=== PATIENT | female | born 1990 | race Caucasian/White ===

== ENCOUNTER 2021-12-17 23:57 | Emergency (ER) | payer OTHER ==
[2021-12-18 00:25] VITALS: BP 99/62; PULSE 75; TEMP 98.3; BMI 20.7
== END 2021-12-18 02:45 | disposition home or self-care (01) ==
LOC: JER 23:57
DX: L60.0 Ingrowing nail (principal)
CPT/HCPCS: 99281-25

== ENCOUNTER 2022-04-08 16:14 | Emergency (ER) | payer OTHER ==
[2022-04-08 17:24] VITALS: BP 95/56; PULSE 88; RESP 20; TEMP 99.1; BMI 23.3
[2022-04-08] MEDS ORDERED: DEXAMETHASONE SOD PHOSPHATE 10 MG/1 ML VIAL IVPUSH ONE (17:59)
[2022-04-08 18:42] LABS: THROAT:GRP A STREP NOT DETECTED (NOTDETECTED)
== END 2022-04-08 18:45 | disposition home or self-care (01) ==
LOC: JER 16:14
PROC: 3E0333Z Introduction of Anti-inflammatory into Peripheral Vein, Percutaneous Approach (ICD-10-PCS; principal; 2022-04-08)
DX: R05.1 Acute cough (principal); J02.9 Acute pharyngitis, unspecified; J09.X2 Influenza due to identified novel influenza A virus with other respiratory manifestations
CPT/HCPCS: 0241U-QW; 87651; 99284-25; J1100

== ENCOUNTER 2023-06-20 17:17 | Emergency (ER) | payer OTHER ==
[2023-06-20 17:50] VITALS: BP 100/64; PULSE 78; RESP 16; TEMP 98.1; BMI 19.1
[2023-06-20 21:00] LABS: HEMATOCRIT 37.7 % (32.4-45.2); HEMOGLOBIN 12.3 GM/dL (10.7-15.3); MCH 27.1 pg (25.7-33.7); MCHC 32.6 g/dl (32.0-36.0); MEAN CELL VOLUME 83.2 fl (80-96); MEAN PLT VOLUME 6.9 fl (7.5-11.1); PLATELET COUNT 271 10^3/uL (134-434); RBC 4.52 M/mm3 (3.60-5.2); RDW 14.2 % (11.6-15.6); WHITE BLOOD COUNT 8.5 K/mm3 (4.0-10.0)
[2023-06-20 21:01] LABS: EPI CELLS >36 /uL (0-25.1); HYALINE CASTS 0 /uL (0-3.1); PH,URINE 5.5 (5.0-8.0); URINE APPEARANCE CLEAR; URINE BACTERIA 412 /uL (0-1359); URINE BILIRUBIN NEGATIVE (NEGATIVE); URINE COLOR YELLOW; URINE GLUCOSE (UA) NEGATIVE (NEGATIVE); URINE KETONE TRACE (NEGATIVE); URINE LEUK ESTERASE TRACE (NEGATIVE); URINE NITRITE NEGATIVE (NEGATIVE); URINE PROTEIN NEGATIVE (NEGATIVE); URINE UROBILINOGEN 0.2 mg/dL (0.2-1.0); URINE WBC 52 /uL (0-25.8)
[2023-06-20 21:03] LABS: URINE RBC 93.1 /uL (0-23.9)
[2023-06-20 21:08] LABS: HCG,QUALITATIVE URINE Negative
[2023-06-20 21:15] LABS: POTASSIUM 3.8 mmol/L (3.5-5.1)
[2023-06-20 21:16] LABS: CALCIUM 8.6 mg/dL (8.5-10.1)
[2023-06-20 21:17] LABS: BLOOD UREA NITROGEN 12.6 mg/dL (7-18)
[2023-06-20 21:20] LABS: CREATININE 0.6 mg/dL (0.55-1.3)
[2023-06-20] MEDS ORDERED: ACETAMINOPHEN 500 MG TABLET (FP) PO ONE (22:26)
[2023-06-20] MEDS ORDERED: ACETAMINOPHEN 500 MG TABLET (FP) ONE (22:39)
== END 2023-06-20 23:52 | disposition home or self-care (01) ==
LOC: JERFT 17:17
DX: R51.9 Headache, unspecified (principal)
CPT/HCPCS: 36415; 70450-TC; 80048; 81003; 84703; 85027; 87086; 99284-25